=== PATIENT | male | born 1985 ===

== ENCOUNTER 2017-06-11 20:59 | Emergency (ER) | payer SELFPAY ==
--- NOTE | 2017-06-11 22:46 | C.PDOC ---
History Of Present Illness 31 year old male who was [facility] for being too intoxicated. Patient admits he to drinking tonight; denies complaints at this time. Time Seen by Provider: 06/11/17 21:01 Chief Complaint (Nursing): Substance Abuse History Per: Patient History/Exam Limitations: no limitations Onset/Duration Of Symptoms: Hrs Current Symptoms Are (Timing): Still Present Suicide/Self Injury Attempted (Context): None Modifying Factor(s): Alcohol Associated Symptoms: denies: Depression, Suicidal Thoughts, Suicidal Plan Involuntary Hold By: None Recent travel outside of the [place]: No Past Medical History Reviewed: Historical Data, Nursing Documentation, Vital Signs Vital Signs: Last Vital Signs Temp 97.3 F L 06/11/17 21:01 Pulse 85 06/11/17 21:01 Resp 16 06/11/17 21:01 BP 139/79 06/11/17 21:01 Pulse Ox 97 06/11/17 23:43 - Medical History PMH: No Chronic Diseases Surgical History: No Surg Hx Family History: States: Unknown Family Hx - Social History Hx Alcohol Use: Yes Hx Substance Use: No - Immunization History Hx Influenza Vaccination: No Hx Pneumococcal Vaccination: No Review Of Systems Constitutional: Negative for: Fever, Chills Gastrointestinal: Negative for: Nausea, Vomiting, Diarrhea Physical Exam - Physical Exam Appears: Non-toxic, No Acute Distress, Other (stuporous, intoxicated, large muscular ) Skin: Normal Color, Warm, Dry Head: Atraumatic, Normacephalic Oral Mucosa: Moist Chest: Symmetrical, No Tenderness Cardiovascular: Rhythm Regular Respiratory: Normal Breath Sounds, No Rales, No Rhonchi, No Wheezing Gastrointestinal/Abdominal: Soft, No Tenderness Extremity: Normal ROM (x4) Neurological/Psych: Oriented x3, Normal Speech, Normal Cognition Gait: Unsteady ED Course And Treatment O2 Sat by Pulse Oximetry: 97 (Room air) Pulse Ox Interpretation: Normal Progress Note: Patient unable to follow instructions or be redirected after multiple attempts. Patient was placed in 4 point restraints for his own safety at 21:00. 2330: Admits to drinking vodka today. pt continues to gnaw at his restraints for over 2 hrs. Cannot be redirected to rest quietly. Concerned he will hurt himself pulling at restraints constantly and biting at metal asya, Ativen 2 IM for gentle sedation. Reevaluation Time: 01:30 Reassessment Condition: Improved (stable gait, wants d/c to street) Medical Decision Making Medical Decision Making: alcohol abuse Disposition Doctor Will See Patient In The: Office Counseled Patient/Family Regarding: Studies Performed, Diagnosis - Disposition Disposition: HOME/ ROUTINE Disposition Time: 01:36 Condition: GOOD Forms: [facility] (Gambian) - Clinical Impression Clinical Impression: Alcohol abuse - Scribe Statement The provider has reviewed the documentation as recorded by the Scribsusie Hickman All medical record entries made by the Michelleibe were at my direction and personally dictated by me. I have reviewed the chart and agree that the record accurately reflects my personal performance of the history, physical exam, medical decision making, and the department course for this patient. I have also personally directed, reviewed, and agree with the discharge instructions and disposition.
[2017-06-12 01:41] VITALS: BP 114/85; PULSE 100; RESP 18; TEMP 98.1; O2SAT 96
== END 2017-06-12 01:49 | disposition home or self-care (01) ==
LOC: C.ER 20:59
DX: F10.10 Alcohol abuse, uncomplicated (principal); Y90.9 Presence of alcohol in blood, level not specified
CPT/HCPCS: 96372; 99283; J2060